=== PATIENT | male | born 1965 | race Two or more races ===

== ENCOUNTER 2021-11-23 12:55 | Emergency (ER) | payer OTHER ==
[~2021-11-23] VITALS: Ht 167.6 cm; Wt 70.3 kg
[2021-11-23] MEDS ORDERED: IV NORMAL SALINE 1000 ML BAG IV ONE (13:30)
[2021-11-23] MEDS ORDERED: MORPHINE SULFATE 2 MG/1 ML DISP.SYRIN IV ONE (13:30)
[2021-11-23] MEDS ORDERED: SWABABLE VALVE TRANSFER SET EA MC ONE (13:32)
[2021-11-23] MEDS ORDERED: IV NORMAL SALINE 250 ML IV ONE (13:32)
[2021-11-23] MEDS ORDERED: IOHEXOL 350 100 ML INFUS..BTL ONE (13:32)
[2021-11-23 14:02] LABS: CREATININE 0.8 mg/dL (0.6-1.3); POTASSIUM 4.3 mmol/L (3.5-5.1)
[2021-11-23 14:05] LABS: HEMATOCRIT 53.1 % (36.7-47.1); MEAN CORPUSCULAR HEMOGLOBIN 30.9 uug (23.8-33.4); MEAN CORPUSCULAR VOLUME 89.8 fL (73.0-96.2); PLATELET COUNT (AUTO) 214 K/uL (152-348)
[2021-11-23 14:18] LABS: BILIRUBIN,DIRECT 0.2 mg/dL (0.0-0.2); BILIRUBIN,TOTAL 0.7 mg/dL (0.2-1.0); TOTAL PROTEIN, SERUM 7.8 g/dL (6.4-8.2)
[2021-11-23 15:35] LABS: *BILIRUBIN,URIN NEGATIVE (NEGATIVE); *BLOOD, URINE 1+ (NEGATIVE); *CLARITY,URINE SLIGHTLY CLOUDY (CLEAR); *COLOR,URINE YELLOW (YELLOW); *KETONES,URINE NEGATIVE (NEGATIVE); *UROBILINOGEN,URINE 0.2 E.U./dl (NORMAL); LEUKOCYTE ESTERASE ,URINE 2+ (NEGATIVE); NITRITE, URINE POSITIVE (NEGATIVE); UGLUCOSE NEGATIVE (NEGATIVE)
[2021-11-23] MEDS ORDERED: HYDROCODONE/APAP 5-325MG TABLET PO ONE (15:45)
[2021-11-23] MEDS ORDERED: HYDROCODONE/APAP 5-325MG TABLET ONE (16:09)
[2021-11-23] MEDS ORDERED: CIPROFLOXACIN HCL 250 MG TABLET PO ONE (16:30)
[2021-11-23] MEDS ORDERED: CIPR500T5 PO (16:33)
[2021-11-23] MEDS ORDERED: CIPROFLOXACIN HCL 250 MG TABLET ONE (16:38)
--- NOTE | 2021-11-23 16:54 | NUR ---
Spoke with Valerio from [facility] and ETA is 1 hour.
[2021-11-23 17:12] LABS: SQUAMOUS EPITHELIAL CELL,UR FEW /HPF (NONE SEEN)
[2021-11-23 17:13] LABS: BACTERIA,URINE MODERATE /HPF (NONE SEEN)
[2021-11-23 19:10] VITALS: BP 125/93
--- NOTE | 2021-11-23 19:11 | NUR ---
Patient discharged to back to [facility] via ambulance in stable condition. Written and verbal after care instructions given. Patient verbalizes understanding of instructions. Stressed follow up or return to ER for worsening s/s.
== END 2021-11-23 19:15 ==
LOC: ER 12:55
DX: K56.7 Ileus, unspecified (principal); N39.0 Urinary tract infection, site not specified; G62.9 Polyneuropathy, unspecified; Z88.1 Allergy status to other antibiotic agents; Z88.0 Allergy status to penicillin; G82.20 Paraplegia, unspecified; T14.8XXS Other injury of unspecified body region, sequela; X95.9XXS Assault by unspecified firearm discharge, sequela; N31.9 Neuromuscular dysfunction of bladder, unspecified; Z93.6 Other artificial openings of urinary tract status
CPT/HCPCS: 36415; 72131; 83690; 85025; 87086; A4663; Q9967

== ENCOUNTER 2021-12-12 18:32 | Emergency (ER) | payer OTHER ==
[~2021-12-12] VITALS: Ht 167.6 cm; Wt 54.4 kg
[~2021-12-12 18:32] MED LIST: CIPR500T5 PO
[2021-12-12] MEDS ORDERED: DOCU-141 PO (19:05)
[2021-12-12] MEDS ORDERED: SENN8.8S19 PO (19:05)
[2021-12-12] MEDS ORDERED: LORA-259 PO (19:05)
[2021-12-12] MEDS ORDERED: ACET-2154 PO (19:05)
[2021-12-12] MEDS ORDERED: GABA600T12 PO (19:05)
[2021-12-12] MEDS ORDERED: POLY17PO4 PO (19:05)
[2021-12-12] MEDS ORDERED: BISA-79 PO (19:05)
[2021-12-12] MEDS ORDERED: OXYC-133 PO (19:05)
[2021-12-12] MEDS ORDERED: DIPH25CA83 PO (19:05)
[2021-12-12] MEDS ORDERED: [UNRECOGNIZED DRUG - CODE] TP (19:05)
[2021-12-12] MEDS ORDERED: IBUP-1953 PO (19:05)
[2021-12-12] MEDS ORDERED: BACL10TA PO (19:05)
[2021-12-12] MEDS ORDERED: OXYC-128 PO (19:05)
[2021-12-12] MEDS ORDERED: ONDA4TAB5 PO (19:06)
[2021-12-12] MEDS ORDERED: LIDOCAINE HCL 2% 20 ML VIAL IJ ONE (19:45)
[2021-12-12 20:12] LABS: HEMATOCRIT 45.9 % (36.7-47.1); MEAN CORPUSCULAR HEMOGLOBIN 30.2 uug (23.8-33.4); MEAN CORPUSCULAR VOLUME 91.3 fL (73.0-96.2); PLATELET COUNT (AUTO) 248 K/uL (152-348)
[2021-12-12 20:18] LABS: CREATININE 0.9 mg/dL (0.6-1.3)
--- NOTE | 2021-12-12 20:20 | NUR ---
Assumed care of pt, pt found in bed, alert and orinted by monitor equipment, cardiac, pulse, blood pressure). pt has large abcess to the left lower buttuck, site is red, warm to the touch and has purulent drainage. pt is unsure of exact date inj which symptoms began appearing. pt sts pain is constant, non-provoked,non-alleviating, described as tight, ache. MD to drainage abcess, pt informed of plan of care, understanding verbalised.
[2021-12-12] MEDS ORDERED: LIDOCAINE HCL 2% 20 ML VIAL ONE (20:38)
[2021-12-12] MEDS ORDERED: SULFAMETH/TRIMETH 800/160 MG TABLET PO ONE (22:00)
[2021-12-12] MEDS ORDERED: SULF1TAB48 PO (22:04)
--- NOTE | 2021-12-12 22:07 | NUR ---
Called [facility] ambulance and spoke to Sandra dispatcher. ETA is 2hrs.
--- NOTE | 2021-12-12 22:29 | NUR ---
Wound I&D'd by , sample cultured and sent to lab, pt tolerated procedure well. site packed and pt given extensive ACI verbally and in person by , reiterated by RN. pt cleared fpr D/C by , transportation contacted for pt, ETA before 0000. pt updated as to plan of care, understanding verbalised. vitals stable, pt medicated per MD order
--- NOTE | 2021-12-12 23:22 | NUR ---
Transportation at bedside, report given to crew along with Rx, paperwork and belongings. pts vitals reassessed prior to departure and found to be WNL. Report called to "HIPOLITO Morris" at pts facility, details of care provided as well as ACI relayed, Arturo verbalised understanding. pt transfered to [facility], secured to [facility] and taken by ANTONINA, crew #[id number] back to pts facility
[2021-12-12] MEDS ORDERED: SULFAMETH/TRIMETH 800/160 MG TABLET ONE (23:44)
== END 2021-12-13 02:21 ==
LOC: ER 18:32
DX: L02.31 Cutaneous abscess of buttock (principal); G82.20 Paraplegia, unspecified; Z90.5 Acquired absence of kidney
CPT/HCPCS: 99283; 10060; 80048; 83735; 85025; 87070; 87077; 36415; 74018; J3490; A4663